=== PATIENT | male | born 1975 | race Caucasian/White ===

== ENCOUNTER 2017-01-20 21:26 | Emergency (ER) | payer BC ==
[~2017-01-20] VITALS: Ht 185.4 cm; Wt 103.4 kg
[2017-01-20] MEDS ORDERED: ATIVAN0.5 MG PO (22:54)
[2017-01-20 22:55] LABS: HEMATOCRIT 40.1 % (38.0-50.0); MCH 30.3 PG (29.0-34.0); MCHC 34.7 G/DL (30.0-36.0); MCV 87.6 FL (86-99); MEAN PLAT.VOLUME 8.9 uM^3 (9.0-12.4); PLATELET COUNT 252 K/uL (156-360); RBC DIS.WIDTH-CV 12.9 % (11.8-14.6); RBC DIS.WIDTH-SD 40.2 % (39-53); RED BLOOD COUNT 4.58 M/uL (4.00-5.50); WHITE BLOOD COUNT 8.5 K/uL (4.1-10.2)
[2017-01-20 23:07] LABS: D-DIMER ELISA < 0.15 mg/L FEU (< 0.57)
[2017-01-20 23:10] LABS: CHLORIDE 105 mEq/L (99-109); POTASSIUM 3.6 mEq/L (3.7-5.4); SODIUM 139 mEq/L (136-147)
[2017-01-20 23:11] LABS: GLUCOSE 129 mg/dL (70-99)
[2017-01-20 23:13] LABS: ANION GAP 9 MEQ/L (2-14)
[2017-01-20 23:15] LABS: GFR ESTIMATE (CALCULATED) > 59 mL/min/
[2017-01-20 23:16] LABS: UREA NITROGEN (BUN) 16 mg/dL (9-23)
[2017-01-20 23:18] LABS: TROP-I INTERPRETATION NEGATIVE; TROPONIN-I 0.03 ng/mL (0.0-0.30)
[2017-01-21 00:29] VITALS: BP 125/88
== END 2017-01-21 00:32 | disposition home or self-care (01) ==
LOC: EME 21:26
DX: F41.1 Generalized anxiety disorder (principal); R07.89 Other chest pain; R06.00 Dyspnea, unspecified; R11.0 Nausea; R42 Dizziness and giddiness; Z87.891 Personal history of nicotine dependence
CPT/HCPCS: 71020; 80048; 84484; 85027; 85379; 93005; 99281; 99285; J1885; J2405; J7030